=== PATIENT | male | born 1990 | race Caucasian/White ===

== ENCOUNTER 2017-02-20 00:48 | Emergency (ER) | payer OTHER ==
--- NOTE | 2017-02-20 01:12 | PDOC ---
History of Present Illness - General Chief Complaint: Toothache Stated Complaint: ABSCESS/MOUTH Time Seen by Provider: 02/20/17 00:52 History Source: Patient Exam Limitations: No Limitations - History of Present Illness Initial Comments: 02/20/17 06:56 27-year-old male presents to the emergency department complaining of toothache to the right upper second and third molar 2 days. Pain is exacerbated when drinking cold or hot fluids. Patient denies fever, chills, nausea/vomiting, difficulty swallowing, sore throat. Pain is exacerbated also when touching his teeth with his own fingers. Alleviated minimally with Tylenol Motrin. Patient states he will see a dentist within 2 days. Timing/Duration: 24 hours Associated Symptoms: reports: denies symptoms Past History - Past Medical History Allergies/Adverse Reactions: Allergies Allergy/AdvReac Type Severity Reaction Status Date / Time No Known Allergies Allergy Verified 06/26/12 12:36 Home Medications: Ambulatory Orders No Home Medications 06/28/12 Amoxicillin - [Amoxicillin 875mg Tablet -] 875 mg PO BID #14 tablet 02/20/17 Anemia: No Asthma: No Diabetes: No HTN: No - Surgical History Abdominal Surgery: No - Psycho/Social/Smoking Cessation Hx Anxiety: No Suicidal Ideation: No Smoking Status: No Smoking History: Current every day smoker Have you smoked in the past 12 months: No Number of Cigarettes Smoked Daily: 8 Information on smoking cessation initiated: No Hx Alcohol Use: No Drug/Substance Use Hx: No Substance Use Type: None Review of Systems - Review of Systems Able to Perform ROS?: Yes Comments:: 02/20/17 01:10 CONSTITUTIONAL: Absent: fever, chills, diaphoresis, generalized weakness, malaise, loss of appetite HEENT: right 2nd and 3rd upper molar pain Absent: rhinorrhea, nasal congestion, throat pain, throat swelling, difficulty swallowing, mouth swelling, ear pain, eye pain, visual Changes CARDIOVASCULAR: Absent: chest pain, loss of consciousness, palpitations, irregular heart rate, peripheral edema RESPIRATORY: Absent: cough, shortness of breath, dyspnea with exertion, orthopnea, wheezing, stridor, hemoptysis GASTROINTESTINAL: Absent: abdominal pain, abdominal distension, nausea, vomiting, diarrhea, constipation, melena, hematochezia 02/20/17 01:11 Is the patient limited [place] proficient: No *Physical Exam - Vital Signs Last Vital Signs Temp Pulse Resp BP Pulse Ox 98.9 F 85 20 162/81 96 02/20/17 00:58 02/20/17 00:58 02/20/17 00:58 02/20/17 00:58 02/20/17 00:58 - Physical Exam Comments: 02/20/17 01:11 GENERAL: Well developed, well nourished. Awake and alert. No acute distress. HEENT: +right upper 2nd and 3rd molar teeth pain on percussion Normocephalic, atraumatic. PERRLA, EOMI. No conjunctival pallor. Sclera are non- icteric. Moist mucous membranes. Oropharynx is clear. NECK: Supple. Full ROM. No JVD. Carotid pulses 2+ and symmetric, without bruits. No thyromegaly. No lymphadenopathy. CARDIOVASCULAR: Regular rate and rhythm. No murmurs, rubs, or gallops. Distal pulses are 2+ and symmetric. PULMONARY: No evidence of respiratory distress. Lungs clear to auscultation bilaterally. No wheezing, rales or rhonchi. ABDOMINAL: Soft. Non-tender. Non-distended. No rebound or guarding. No organomegaly. Normoactive bowel sounds. *DC/Admit/Observation/Transfer Diagnosis at time of Disposition: Toothache - Discharge Dispostion Disposition: HOME Condition at time of disposition: Stable Admit: No - Prescriptions Prescriptions: Amoxicillin - [Amoxicillin 875mg Tablet -] 875 mg PO BID #14 tablet - Referrals Referrals: Jarrod Grijalva MD [Primary Care Provider] - - Patient Instructions Printed Discharge Instructions: DI for Tooth Decay Additional Instructions: Follow-up with your dentist Tylenol as needed for pain Return back to the emergency department for severe/persistent or worsening symptoms - Post Discharge Activity Work/School Note: Back to Work
[2017-02-20 01:14] VITALS: BP 162/81; PULSE 85; TEMP 98.9; BMI 39.1
== END 2017-02-20 01:44 | disposition home or self-care (01) ==
LOC: JER 00:48
DX: K08.89 Other specified disorders of teeth and supporting structures (principal)
CPT/HCPCS: 99282-25

== ENCOUNTER 2021-05-21 15:49 | Emergency (ER) | payer OTHER ==
[2021-05-21 16:03] VITALS: BP 151/82; PULSE 97; TEMP 98.1; BMI 38.5
[2021-05-21] MEDS ORDERED: DIPHTH,PERTUSS(ACELL),TET 0.5 ML DISP.SYRIN IM ONE ×3 (16:29→17:44)
[2021-05-21] MEDS ORDERED: RABIES IMMUNE GLOBULIN 300 UNITS/1 ML VIAL IM ONE (16:49)
[2021-05-21] MEDS ORDERED: RABIES VACCINE (PCEC)/PF 2.5 UNIT/VIAL IM ONE ×2 (16:49→17:45)
== END 2021-05-21 18:33 | disposition home or self-care (01) ==
LOC: JERFT 15:49
PROC: 3E0234Z Introduction of Serum, Toxoid and Vaccine into Muscle, Percutaneous Approach (ICD-10-PCS; principal; 2021-05-21)
PROC: 3E0234Z Introduction of Serum, Toxoid and Vaccine into Muscle, Percutaneous Approach (ICD-10-PCS; 2021-05-21)
DX: S61.451A Open bite of right hand, initial encounter (principal); W55.01XA Bitten by cat, initial encounter
CPT/HCPCS: 90375; 90675; 90715; 99284-25

== ENCOUNTER 2021-05-24 09:48 | Emergency (ER) | payer BC, OTHER ==
[2021-05-24 10:13] VITALS: BP 156/80; PULSE 105; TEMP 98.3; BMI 37.5
[2021-05-24] MEDS ORDERED: RABIES VACCINE (PCEC)/PF 2.5 UNIT/VIAL IM ONE ×2 (10:21→10:32)
== END 2021-05-24 10:47 | disposition home or self-care (01) ==
LOC: JERFT 09:48 → JER 09:48 → JERFT 10:47
PROC: 3E023GC Introduction of Other Therapeutic Substance into Muscle, Percutaneous Approach (ICD-10-PCS; principal; 2021-05-24)
DX: S61.451A Open bite of right hand, initial encounter (principal); W55.01XA Bitten by cat, initial encounter; Z20.3 Contact with and (suspected) exposure to rabies
CPT/HCPCS: 90675; 99283-25

== ENCOUNTER 2021-05-28 14:13 | Emergency (ER) | payer BC ==
[2021-05-28 14:45] VITALS: BP 134/77; PULSE 81; TEMP 97; BMI 37.5
[2021-05-28] MEDS ORDERED: RABIES VACCINE (PCEC)/PF 2.5 UNIT/VIAL IM ONE ×2 (14:46→14:48)
== END 2021-05-28 15:02 | disposition home or self-care (01) ==
LOC: JER 14:13
PROC: 3E0234Z Introduction of Serum, Toxoid and Vaccine into Muscle, Percutaneous Approach (ICD-10-PCS; principal; 2021-05-28)
DX: Z29.14 Encounter for prophylactic rabies immune globulin (principal)
CPT/HCPCS: 90675; 99283-25

== ENCOUNTER 2021-06-04 05:47 | Emergency (ER) | payer BC ==
[2021-06-04 06:41] VITALS: BP 133/74; PULSE 77; TEMP 98.1; BMI 37.5
[2021-06-04] MEDS ORDERED: RABIES VACCINE (PCEC)/PF 2.5 UNIT/VIAL IM ONE ×2 (07:17→07:28)
== END 2021-06-04 07:40 | disposition home or self-care (01) ==
LOC: JER 05:47
PROC: 3E0234Z Introduction of Serum, Toxoid and Vaccine into Muscle, Percutaneous Approach (ICD-10-PCS; principal; 2021-06-04)
DX: Z29.14 Encounter for prophylactic rabies immune globulin (principal)
CPT/HCPCS: 90675; 99284-25

== ENCOUNTER 2023-08-31 13:27 | Emergency (ER) | payer BC, OTHER ==
[2023-08-31 13:35] VITALS: BP 151/79; PULSE 82; RESP 20; TEMP 98.5; BMI 32.3
[2023-08-31 15:40] LABS: EPI CELLS 2 /uL (0-25.1); HYALINE CASTS 0 /uL (0-3.1); URINE APPEARANCE CLEAR; URINE BACTERIA 3 /uL (0-1359); URINE BILIRUBIN NEGATIVE (NEGATIVE); URINE COLOR YELLOW; URINE GLUCOSE (UA) NEGATIVE (NEGATIVE); URINE KETONE NEGATIVE (NEGATIVE); URINE LEUK ESTERASE NEGATIVE (NEGATIVE); URINE NITRITE NEGATIVE (NEGATIVE); URINE PROTEIN 1+ (NEGATIVE); URINE RBC 19 /uL (0-23.9); URINE UROBILINOGEN 0.2 mg/dL (0.2-1.0); URINE WBC 0 /uL (0-25.8)
== END 2023-08-31 16:00 | disposition home or self-care (01) ==
LOC: JER 13:27
DX: N50.812 Left testicular pain (principal); R10.32 Left lower quadrant pain
CPT/HCPCS: 76870-TC; 81003; 87086; 99284-25